=== PATIENT | female | born 1940 | race Caucasian/White ===

== ENCOUNTER → 2023-09-06 09:22 | Outpatient (REF) | payer OTHER, SELFPAY | LOC: HWRCS 09:22 | PROVIDERS: ATTENDING PHYSICIAN Internal Medicine Cardiovascular Disease; FAMILY PHYSICIAN Family Medicine | DX: Z95.2 Presence of prosthetic heart valve (principal) | CPT/HCPCS: 93306 ==

== ENCOUNTER → 2023-11-06 17:08 | Outpatient (REF) | payer OTHER, SELFPAY | LOC: RAD 17:08 | PROVIDERS: ATTENDING PHYSICIAN Physician Assistant | DX: R60.0 Localized edema (principal); R06.02 Shortness of breath; I25.10 Atherosclerotic heart disease of native coronary artery without angina pectoris; E11.59 Type 2 diabetes mellitus with other circulatory complications | CPT/HCPCS: 71046 ==

== ENCOUNTER → 2024-08-08 12:29 | Outpatient (REF) | payer OTHER, SELFPAY | LOC: RSP 12:29 | PROVIDERS: ATTENDING PHYSICIAN Family Medicine | DX: R06.02 Shortness of breath (principal) | CPT/HCPCS: 94727; 94729; 88738; 94060 ==

== ENCOUNTER 2024-08-13 08:12 | Emergency (ER) | payer OTHER, SELFPAY ==
[2024-08-13] VITALS (14 sets, daily range): BP systolic 105–153; BP diastolic 44–94; O2SAT 95–98; BMI 30.8
--- NOTE | 2024-08-13 08:19 | ED.MUSCINJ ---
HPI-Injury
General
Chief Complaint: Fall
Source: patient and ambulance crew
Exam Limitations: none
Time Seen by Provider: 08/13/24 08:17
Nursing documentation reviewed up to this point in time: agreed with
History of Present Illness-Injury
Initial Injury comments:
83 yo female w h/o CAD, HTN, HLD, NIDDM, L hip replacement 2013, Tess, Pacemaker, chronic limited ROM left shoulder, presents after fall. She states in her bedroom a few hours ago, reached for her walker, missed it and fell onto carpeted floor. EMS
reports she fell around 5 a.m. (3 hours ago), lay on floor for a while then pushed her emergency button. She waited so long because reportedly, forgot she was wearing the call button. EMS reports they found her prone on the floor.
Pt denies hitting head, denies headache, neck or any new back pain. Points to left clavicle area and left hip to indicate areas of pain.
She denies feeling dizzy or lightheaded prior to fall.
Takes Clopidogrel and ASA.
She was able to get up with help and ambulate with her walker for EMS.
Past History
Past History
ED Past Medical History: HTN, Hypercholesterolemia, NIDDM, Valvular disease and Other (Back pain)
ED Past Surgical History: Cholecystectomy and Orthopedic
Social History
Tobacco: Non-smoker
Alcohol: None
Drug: None
Personal:
Living: alone
Employment: Retired
Family History
Family History: Other (Noncontributory)
Review of Systems
Review of Systems
Allergies reviewed?: Yes
All Other Systems: ROS reviewed and negative except as documented in HPI and ROS
Constitutional: Denies fever
Respiratory: Denies trouble breathing
Cardiac: Denies chest pain, palpitations or syncope
ABD/GI: Denies abdominal pain, nausea, vomiting, diarrhea or anorexia
: Denies dysuria, frequency, difficulty voiding or urgency
Musculoskeletal: Reports back pain (chronic, nothing new) and other (pain left shoulder area, left hip and left lower leg); Denies edema or neck pain
Skin: Reports other (reddened areas both knees, bruise left ingarm)
Neurological: Denies dizzy, headache, weakness or numbness
Phy Exam
Physical Exam
Physical Exam:
GENERAL: No acute distress. A&Ox3.
CONSTITUTIONAL: Afebrile.
EYES: clear, conjunctivae normal
ENMT: dry mucus membranes, Pharynx nl
RESPIRATORY: Regular respirations, nonlabored, lungs clear.
CARDIOVASCULAR: Regular rate and rhythm, no murmurs, no rubs.
GI: Soft, nontender, normal BS
MUSCULOSKELETAL: Moves with ease. Well perfused. No edema. Mild tenderness to palpation about the left shoulder, local ecchymosis anterior to axilla, chronic limited ROM. Mild tenderness to palpation left hip.No discoloration or swelling here, hip
discomfort with attempt to bend her knee. Left mid ingram with local swelling and ecchymosis, tender. Distal N/V intact.
SKIN: Warm, dry, pink, anterior knees with local areas of redness
PSYCH: Normal mood and affect. Well kept, interactive and appropriate
NEUROLOGIC: Awake, alert and oriented. No focal neurological deficits.Speech clear, CN 2-12 intact.
Injury Course
Orders/Labs/Results
Orders:
Orders
08/13/24 08:18
Electrocardiogram (*1) Urgent
Reason for Study: Other
Other Reason for Exam: Fall
EKG- Treatment ONCE
Hip, Left 2-3 Views [CR Hip - LT w/wo Pel 2-3 Vw*] Urgent
Comment:
Reason For Exam: fall, pain
Include a pelvis x-ray?: Yes
Shoulder, Left, Trauma CR [CR Shoulder, Trauma - Left] Urgent
Comment:
Reason For Exam: fall, pain
Tib/Fib, Left 2 View [CR Leg Tibia/fibula Left 2 Vw] Urgent
Comment:
Reason For Exam: fall, pain
08/13/24 08:22
CPK Isoenzyme Urgent
Complete Blood Count/With Diff Urgent
Comprehensive Metabolic Panel Urgent
08/13/24 08:26
0.9% Sodium Chloride 500 ml [Nss] 500 ml IV BOLUS
08/13/24 11:47
Case Management Consult ONCE
Case Management Consult: Discharge Planning
Comment: pt from [facility] frequent falls family hoping for some additional resources
08/13/24 11:58
Physical Therapy Consult [Pt Eval And Treat] Urgent
Activity Level: Ambulate
08/13/24 12:55
Case Management Consult ONCE
Case Management Consult: Discharge Planning
Comment: Patient is here for checkup after fall. Initially her daughter requested case management evaluation
which was done. she lives alone, uses a walker, had physical therapy evaluate and they deem her
unsafe to go home.
08/13/24 13:01
OT Consult [Ot Eval And Treat] Urgent
Treatment: for placement
08/13/24 13:06
Occupational Therapy Consult [Ot Eval And Treat] Urgent
08/13/24 13:17
Urinalysis Reflex To Culture Urgent
Date Specimen was Collected: 08/13/24
Time Specimen was Collected: 13:02
Urine Microscopic Reflex Cult Urgent
Urine Culture Urgent
RENATO Source: U
Specimen Description:
Date Specimen was Collected: 08/13/24
Time Specimen was Collected: 13:02
Abnormal Lab Results
08/13/24 08/13/24
08:22 13:17
Abs Immat Gran (auto) 0.1 H 10^3/uL
(0-0.05)
Immature Gran % 0.6 H %
(0-0.5)
Neutrophils % 76.7 H %
(42.2-75.2)
Lymphocytes % 15.5 L %
(20.5-51.1)
BUN 36 H mg/dl
(7-17)
Creatinine 1.2 H mg/dL
(0.6-1.0)
Glucose 239 H mg/dl
(70-99)
CK-MB (CK-2) 4.4 H ng/ml
(0.0-3.4)
Ur Occult Blood Reflex 3+ A
(Negative)
Leukocyte Esterase Rfl 3+ A
(Negative)
Urine WBC (Reflex) 50-60 A /HPF
(0-5)
Urine Bacteria (Reflex) Many A
(Negative)
Urine Albumin (Reflex) 2+ A
(Neg - Trace)
08/13/24 08:22
08/13/24 08:22
MDM/Problems Addressed
Differential Diagnosis Includes:
fx vs contusion left shoulder, left hip, left tib/fib
Rhabdomyolysis, dehydration, UTI
MDM/Problems Addressed:
83 yo female w h/o CAD, HTN, HLD, NIDDM, L hip replacement 2013, Tess, Pacemaker, chronic limited ROM left shoulder, presents after fall. She states in her bedroom a few hours ago, reached for her walker, missed it and fell onto carpeted floor. EMS
reports she fell around 5 a.m. (3 hours ago), lay on floor for a while then pushed her emergency button. She waited so long because reportedly, forgot she was wearing the call button. EMS reports they found her prone on the floor.
Pt denies hitting head, denies headache, neck or any new back pain. Points to left clavicle area and left hip to indicate areas of pain.
She denies feeling dizzy or lightheaded prior to fall.
Takes Clopidogrel and ASA.
She was able to get up with help and ambulate with her walker for EMS.
EKG: Sinus with PACs.
10:00 a.m.
CBC unremarkable
CMP: BUN/Creat 36/1.2 IVFs infusing for mild dehydration. Glucose 239, CPL minimally elevated 4.4, otherwise normal
Tib fib xray: No fracture
Left hip xray: No acute abnormality
Left shoulder x-ray: No acute abnormality. Moderate osteoarthritis
11:40 AM:
Daughter requests case management to see if there is some way she can get help for patient at home as she is the only caregiver
RN reports patient needed significant help ambulating to the bathroom, physical therapy consult pending
2:20 p.m.
O/T consult in (for insurance purposes per Case Management).
Anna Marie from in and is awaiting approval for [facility]
4:30 P.M.
Pt accepted to [facility]
Ambulance arrival for transport approx 1900
Chronic conditions affecting care: DM and HTN
*EKG
EKG Intrepretation Date: 08/13/24
Interpretation: abnormal
Comparison EKG: changes noted
Heart Rate: 72
Rate: normal
Rhythm: sinus and PAC's
[place]: left axis deviation
Interval: normal interval
QRS Pattern: wide non-specific
Ischemia: no ischemia
ED Attending Note
-
Portions of this chart may have been created with voice recognition software.� Occasional wrong word or��sound alike� substitutions may have occurred due to the inherent limitations of voice recognition software.
Discharge Plan
Departure
Patient Disposition: Fpc/SNF
Date of Disposition: 08/13/24
Time of Disposition: 16:36
Patient with high blood pressure during this ER visit?: No
Condition: Fair
Discharge Problem:
Fall from slip, trip, or stumble, Contusion of left shoulder, Contusion of left lower leg, Ambulatory dysfunction
Instructions: Contusion (DC), Preventing falls in adults
Prescriptions:
No Action
lisinopril 10 mg Tablet
30 mg PO QPM
hydrochlorothiazide 25 mg Tablet
25 mg PO DAILY
oxycodone 5 mg Tablet
5 mg PO Q4H PRN (Reason: pain)
lisinopril 20 MG tablet
20 mg PO DAILY
metformin 500 MG tablet extended release 24 hr
500 mg PO BID
atorvastatin 40 mg tablet
40 mg PO DAILY Qty: 90 3RF
clopidogrel 75 mg tablet
75 mg PO DAILY Qty: 90 10RF
aspirin 81 mg Tablet,Chewable
81 mg PO DAILY
acetaminophen 325 mg Tablet
650 mg PO Q6HPRN PRN (Reason: PEREYRA, mild pain, or fever >101F) Qty: 0 0RF
Referrals:
Reva Krause MD [Family Provider] - As needed
Interventions
Interventions:
*Risk Screen - Suicide Last Done: 08/13/24 08:15
*General Assessment Last Done: 08/13/24 08:15
*Neglect/Abuse Screening Last Done: 08/13/24 08:15
*ED- Fall Risk Assessment Last Done: 08/13/24 08:15
ED-Musculoskeletal Assessment Last Done: 08/13/24 08:15
ED- Neurological Assessment Last Done: 08/13/24 08:20
ED-Skin Assessment Last Done: 08/13/24 08:15
Discharge Date and Time
Print Language: THAI
[2024-08-13 08:35] LABS: % Basophils 0.5 % (0-2); % Eosinophils 0.4 % (0-6); % Immature Granulocytes 0.6 % (0-0.5); % Lymphocytes 15.5 % (20.5-51.1); % Monocytes 6.3 % (1.7-9.3); % Neutrophils 76.7 % (42.2-75.2); Absolute Immature Granulocytes 0.1 10^3/uL (0-0.05); Absolute Lymphocytes 1.3 10^3/uL (1.2-3.4); Absolute Monocytes 0.5 10^3/uL (0.1-0.6); Absolute Neutrophils 6.5 10^3/uL (1.4-6.5); Hematocrit 37.9 % (37.0-47.0); Hemoglobin 13.1 g/dL (12.0-16.0); Mean Corp Hgb Conc. 34.6 g/dL (33.0-37.0); Mean Corpuscular Volume 86.7 fL (81.0-99.0); Mean Platelet Volume 9.7 fL (7.4-10.4); Nucleated Red Blood Cells % 0 %; Platelet Count 145 10^3/uL (130-400); Red Blood Cell Count 4.37 10^6/uL (4.20-5.40); White Blood Cell Count 8.4 10^3/uL (4.8-10.8)
[2024-08-13 08:46] LABS: ALT (SGPT) 33 U/L (0-35); AST (SGOT) 29 U/L (14-36); Albumin 4.4 g/dl (3.5-5.0); Alkaline Phosphatase 110 U/L (38-126); Blood Urea Nitrogen 36 mg/dl (7-17); Calcium 9.4 mg/dl (8.4-10.2); Carbon Dioxide 26 mmol/L (22-30); Chloride 106 mmol/L (98-107); Estimated Creatinine Clearance 29 ml/min; Glucose 239 mg/dl (70-99); Potassium 4.6 mmol/L (3.5-5.1); Sodium 145 mmol/L (135-145); Total Bilirubin 0.7 mg/dl (0.2-1.3); Total CK 133 U/L (30-135); Total Protein 7.2 g/dl (6.3-8.2); eGFR 44.36
[2024-08-13] MEDS: NSS 500 IV (09:23)
[2024-08-13 09:25] LABS: CKMB 4.4 ng/ml (0.0-3.4)
--- NOTE | 2024-08-13 12:24 | CM ---
Addendum entered by Anna Marie Willard 08/13/24 15:10:
Pt offered bed at [facility] and pt in agreement
Auth obtained through [facility]
Medical necessity completed
[facility] auth#[id number] 7 days NRD 08/19 9P0
[facility] auth# [id number] [address]
Both auths good for SOC until Mon
Discharge Disposition- [facility] via BLS
Phone- [phone] Fax- [phone]
Original Note:
ED CM consult for dc planning
Bedside meeting with pt and dtr
Pt resides alone in an apt in [facility]
Sje is indep with ambulation and personal care with use of a WW
Dtr provided assistance with meals, transport and errands
Dtr visits every MWF
PCP- Reva Krause
CM provided private duty info as well as [place] [facility] info for home and community based services
If VN needs, [facility] is provider preference
Awaiting outcome of PT eval
[2024-08-13 13:34] LABS: Urine Albumin 2+ (Neg - Trace); Urine Bilirubin Negative (Negative); Urine Character Clear (Clear); Urine Color Yellow; Urine Glucose Negative (Negative); Urine Ketone Negative (Negative); Urine Leukocyte 3+ (Negative); Urine Nitrite Negative (Negative); Urine Occult Blood 3+ (Negative); Urine Urobilinogen Negative (Neg - 1+)
[2024-08-13 13:43] LABS: Urine Bacteria Many (Negative); Urine Red Blood Cell 0-2 /HPF (0-2); Urine Squamous Cell 0-2 /LPF (Few); Urine White Cell 50-60 /HPF (0-5)
== END 2024-08-13 18:16 ==
LOC: EMR 08:12
PROVIDERS: Registered Nurse; EMERGENCY PHYSICIAN Student in an Organized Health Care Education/Training Program; FAMILY PHYSICIAN Family Medicine
DX: S40.012A Contusion of left shoulder, initial encounter (principal); S80.12XA Contusion of left lower leg, initial encounter; M25.552 Pain in left hip; W18.39XA Other fall on same level, initial encounter; R26.2 Difficulty in walking, not elsewhere classified; E86.0 Dehydration; I10 Essential (primary) hypertension; E78.00 Pure hypercholesterolemia, unspecified; E11.9 Type 2 diabetes mellitus without complications; I25.10 Atherosclerotic heart disease of native coronary artery without angina pectoris; Z95.0 Presence of cardiac pacemaker; Z90.49 Acquired absence of other specified parts of digestive tract; Z96.642 Presence of left artificial hip joint
CPT/HCPCS: 96360; 99285; 73030; 73502; 73590; 80053; 81003; 81015; 82550; 82553; 85025; 87086; 93005

== ENCOUNTER → 2024-08-14 18:05 | Outpatient (REF) | payer OTHER, SELFPAY ==
[2024-08-15 10:16] LABS: Urine Albumin 1+ (Neg - Trace); Urine Bilirubin Negative (Negative); Urine Character Slightly Cloudy (Clear); Urine Color Yellow; Urine Glucose 4+ (Negative); Urine Ketone Negative (Negative); Urine Leukocyte 3+ (Negative); Urine Nitrite Negative (Negative); Urine Occult Blood 1+ (Negative); Urine Urobilinogen Negative (Neg - 1+)
[2024-08-15 10:27] LABS: Urine Bacteria Many (Negative); Urine White Cell 30-40 /HPF (0-5)
== END ==
LOC: OLABP 18:05
PROVIDERS: ATTENDING PHYSICIAN Family Medicine
DX: M62.59 Muscle wasting and atrophy, not elsewhere classified, multiple sites (principal); N39.0 Urinary tract infection, site not specified; E11.22 Type 2 diabetes mellitus with diabetic chronic kidney disease; N39.41 Urge incontinence; I73.9 Peripheral vascular disease, unspecified; E11.42 Type 2 diabetes mellitus with diabetic polyneuropathy
CPT/HCPCS: 81003; 81015; 87086

== ENCOUNTER → 2024-08-16 11:19 | Outpatient (REF) | payer OTHER, SELFPAY ==
[2024-08-16 11:54] LABS: % Basophils 0.4 % (0-2); % Eosinophils 1.9 % (0-6); % Immature Granulocytes 0.2 % (0-0.5); % Monocytes 7.7 % (1.7-9.3); % Neutrophils 59.8 % (42.2-75.2); Absolute Eosinophils 0.1 10^3/uL (0-0.7); Absolute Lymphocytes 1.5 10^3/uL (1.2-3.4); Absolute Monocytes 0.4 10^3/uL (0.1-0.6); Absolute Neutrophils 2.9 10^3/uL (1.4-6.5); Hematocrit 33.4 % (37.0-47.0); Hemoglobin 11.4 g/dL (12.0-16.0); Mean Corp Hgb Conc. 34.1 g/dL (33.0-37.0); Mean Corpuscular Hgb 29.4 pg (27.0-31.0); Mean Corpuscular Volume 86.1 fL (81.0-99.0); Mean Platelet Volume 10.8 fL (7.4-10.4); Nucleated Red Blood Cells % 0 %; Platelet Count 144 10^3/uL (130-400); Red Blood Cell Count 3.88 10^6/uL (4.20-5.40); Red Cell Dist. Width 14.1 % (11.5-14.5); White Blood Cell Count 4.8 10^3/uL (4.8-10.8)
[2024-08-16 13:02] LABS: ALT (SGPT) 29 U/L (0-35); AST (SGOT) 26 U/L (14-36); Alkaline Phosphatase 149 U/L (38-126); Blood Urea Nitrogen 22 mg/dl (7-17); Carbon Dioxide 25 mmol/L (22-30); Chloride 104 mmol/L (98-107); Glucose 264 mg/dl (70-99); Potassium 4.3 mmol/L (3.5-5.1); Sodium 141 mmol/L (135-145); Total Bilirubin 0.6 mg/dl (0.2-1.3); Total Protein 6.4 g/dl (6.3-8.2); eGFR > 60.00
== END ==
LOC: OLABP 11:19
PROVIDERS: ATTENDING PHYSICIAN Family Medicine
DX: M62.59 Muscle wasting and atrophy, not elsewhere classified, multiple sites (principal); N39.0 Urinary tract infection, site not specified; E11.9 Type 2 diabetes mellitus without complications; E11.51 Type 2 diabetes mellitus with diabetic peripheral angiopathy without gangrene; E11.22 Type 2 diabetes mellitus with diabetic chronic kidney disease; E11.42 Type 2 diabetes mellitus with diabetic polyneuropathy; I25.10 Atherosclerotic heart disease of native coronary artery without angina pectoris
CPT/HCPCS: 36415; 80053; 85025

== ENCOUNTER → 2024-09-19 14:42 | Outpatient (REF) | payer OTHER, SELFPAY | LOC: HWRCS 14:42 | PROVIDERS: ATTENDING PHYSICIAN Internal Medicine Cardiovascular Disease; FAMILY PHYSICIAN Family Medicine | DX: I48.0 Paroxysmal atrial fibrillation (principal) | CPT/HCPCS: 93306 ==

== ENCOUNTER 2025-03-07 09:47 | Day surgery (SDC) | payer OTHER, SELFPAY ==
[2025-03-07 10:45] LABS: Glucose - Point of Care 167 mg/dl (70-99)
[2025-03-07 11:06] VITALS: BMI 26.2
== END 2025-03-07 12:29 | disposition home or self-care (01) ==
LOC: CATH 09:47
PROVIDERS: ATTENDING PHYSICIAN Internal Medicine Cardiovascular Disease; FAMILY PHYSICIAN Family Medicine
DX: I47.19 Other supraventricular tachycardia (principal); I48.0 Paroxysmal atrial fibrillation; Z95.0 Presence of cardiac pacemaker; Z95.2 Presence of prosthetic heart valve; I10 Essential (primary) hypertension; Z95.5 Presence of coronary angioplasty implant and graft; I25.10 Atherosclerotic heart disease of native coronary artery without angina pectoris; E11.9 Type 2 diabetes mellitus without complications; I49.5 Sick sinus syndrome; E78.00 Pure hypercholesterolemia, unspecified
CPT/HCPCS: 82962; 92960; 93005

== ENCOUNTER 2025-03-09 02:49 | Inpatient (IN) | payer OTHER, SELFPAY ==
[2025-03-08 22:32] VITALS: BP 102/55
[2025-03-08 23:00] VITALS: BP 95/68
[2025-03-08 23:08] LABS: Hematocrit 33.2 % (37.0-47.0); Hemoglobin 10.5 g/dL (12.0-16.0); Mean Corp Hgb Conc. 31.6 g/dL (33.0-37.0); Mean Corpuscular Volume 89.5 fL (81.0-99.0); Nucleated Red Blood Cells % 0 %; Platelet Count 158 10^3/uL (130-400); Red Cell Dist. Width 14.5 % (11.5-14.5)
[2025-03-08] MEDS: ZOFRAN 4 MG IV (23:18)
[2025-03-08] MEDS: NSS 1000 IV (23:18)
[2025-03-08 23:20] LABS: ALT (SGPT) 39 U/L (0-35); AST (SGOT) 29 U/L (14-36); Albumin 4.1 g/dl (3.5-5.0); Alkaline Phosphatase 75 U/L (38-126); Blood Urea Nitrogen 46 mg/dl (7-17); Calcium 8.8 mg/dl (8.4-10.2); Carbon Dioxide 25 mmol/L (22-30); Chloride 104 mmol/L (98-107); Glucose 169 mg/dl (70-99); Lipase 53 U/L (23-300); Potassium 4.3 mmol/L (3.5-5.1); Sodium 137 mmol/L (135-145); Total Protein 7.0 g/dl (6.3-8.2); eGFR 20.19
--- NOTE | 2025-03-08 23:56 | ED.GENMED ---
History of Present Illness
<Lisa Lancaster MD, Resident - Last Filed: 03/09/25 06:51>
General
Chief Complaint: Fall
Source: patient and family
Time Seen by Provider: 03/08/25 22:58
History of Present Illness
History of Present Illness:
84-year-old female past medical history of paroxysmal A-fib with recent cardioversion yesterday back to sinus rhythm on Eliquis, vascular disease, pacemaker presents to the ER after a fall. Her walker rolled too far out in front of her when she
fell forward onto carpeted floor. She used her altert necklace to call EMS and came to the ER for further evaluation. She denies hitting her head, any loss of consciousness, neck pain or headache. She denies any dizziness, lightheadedness,
feelings like she would pass out prior to falling. She has noted some nausea and vomiting today, but no abdominal pain or diarrhea. She had some nausea and vomiting last week as well according to daughter. They went to their PCP to evaluate and
she was found to be tachycardic in a.fib which is why the cardioversion was scheduled. She also complains of left hip pain. She has chronic left hip pain and current yeast infection and bilateral inguinal and left stomach folds. She denies any
fevers, chills. Daughter states she often has falls when she gets a UTI. She denies any dysuria, hematuria, increased frequency or urgency.
Past History
<Lisa Lancaster MD, Resident - Last Filed: 03/09/25 06:51>
Past History
ED Past Medical History: HTN, Hypercholesterolemia, NIDDM, Valvular disease, Other (spinal stenosis) and Other (paroxysmal a.fib)
ED Past Surgical History: Cholecystectomy and Orthopedic
Social History
Tobacco: Non-smoker
Alcohol: None
Drug: None
Personal:
Living: alone
Employment: Retired
Family History
Family History: Other (Noncontributory)
Review of Systems
<Lisa Lancaster MD, Resident - Last Filed: 03/09/25 06:51>
Review of Systems
Allergies reviewed?: Yes
Constitutional: Reports no symptoms
EENT: Reports no symptoms
Respiratory: Reports no symptoms
Cardiac: Reports no symptoms
ABD/GI: Reports nausea and vomiting
: Reports no symptoms
Musculoskeletal: Reports no symptoms
Phy Exam
<Lisa Lancaster MD, Resident - Last Filed: 03/09/25 06:51>
Physical Exam
Physical Exam:
General: non-toxic, sitting up in bed, conversant
Head: atraumatic, no felt swelling or lumps
NecK: No cervical midline tenderness, full ROM
Eyes: PERRLA
ENT: no raccoon eyes, jordan signs, hemotympanum, fluid in the nose, erythema noted on chin, dry mucous membranes
Cardiac: Regular S1, S2,no murmurs
Respiratory: Clear breath sounds bilaterally
Abdomen: Soft, non-tender, non-distended, normal bowel sounds, beefy red rash in bilateral inguinal folds and left sided stomach folds.
Neurological: Slight left sided facial droop, however NIH 0 with normal symmetrical facial movements, CN II-XII intact, proprioception intact
Back: No midline tenderness
Hips: Bilateral hips full ROM, equal leg length, tenderness with palpation of left iliac crest.
Extremities: No peripheral edema, no tenderness with palpation to bilateral knees or tibia.
Course
<Lisa Lancaster MD, Resident - Last Filed: 03/09/25 06:51>
Orders/Labs/Results
Orders:
Orders
03/08/25 22:41
Electrocardiogram (*1) Urgent
Reason for Study: Abdominal Pain
EKG- Treatment ONCE
IV Insert/Care/Rem.- Treatment PRN
Straight cath- Treatment ONCE
03/08/25 22:53
Complete Blood Count/With Diff Urgent
Comprehensive Metabolic Panel Urgent
Creatine Phosphokinase Urgent
Comment: ADD ON
Lipase Urgent
Urinalysis Reflex To Culture Urgent
Date Specimen was Collected: 03/08/25
Time Specimen was Collected: 22:41
Urine Microscopic Reflex Cult Urgent
Urine Culture Urgent
RENATO Source: U
Specimen Description:
Date Specimen was Collected: 03/08/25
Time Specimen was Collected: 22:41
03/08/25 23:08
0.9% Sodium Chloride 1000 ml [Nss] 1,000 ml IV BOLUS
Ondansetron Injectable [Zofran] 4 mg IV NOW STA
03/08/25 23:44
Add On- LAB Urgent
Tests Added?: CK
03/09/25 00:01
CT Abd/pel Without Iv Or Oral Urgent
Reason For Exam: Nausea, vomiting, fall
CT Head W/o Iv Contrast Urgent
Reason For Exam: Fall, on eliquis
CR Hip - LT w/wo Pel 2-3 Vw* Urgent
Reason For Exam: fall, left hip pain
Include a pelvis x-ray?: Yes
03/09/25 00:16
Clotrimazole [Lotrimin 1% Cream] See Dose Instructions TOPICAL NOW STA
03/09/25 02:36
Cefepime HCl [Maxipime] 2,000 mg IV NOW STA
03/09/25 02:38
Admit/Transfer Patient As Directed
Co-Sign Provider:
Level of Care: Inpatient admission
Assign to:: Telemetry
Physician / Group: Hugo
Diagnosis: UTI, fall
Reason for Telemetry: Medication for Arrhythmia
Date to Stop Telemetry: 03/11/25
Time to Stop Telemetry: 11:00
Reason for Hospitalization: UTI, fall
Expected length of stay greater than two midnights?: Yes
ELOS- Estimated Length of Stay in days: 2
I certify the patient meets the requirements for IP care: Yes
PRN Pain Medication Management As Directed
May give lesser potent ordered pain med per pt: Yes
preference::
Protocol:: Medication orders for pain may be administered in a
manner that supports deferring to patient preference
when the pt is:
- Requesting an ordered lesser potent pain medication.
Least to most potent pain medications are defined
as: acetaminophen < NSAID < tramadol < opioids
(morphine, oxycodone, hydromorphone).
- Requesting a lesser dose of the same medication IF
ORDERED.
- Requesting a less intrusive route of administration
if both routes are prescribed by the provider (PO <
IV).
03/09/25 02:39
Code Status As Directed
Resuscitation Status: Do not resuscitate
Reached after discussion with pt or family/Healthcare POA: Yes
DNR Bracelet Application ONCE
03/09/25 02:40
Sterile Water [Sterile Water For Injection] 10 ml IV NOW STA
03/09/25 04:53
0.9% Sodium Chloride 1000 ml [Nss] 1,000 ml IV 100 mls/hr
Acetaminophen [Tylenol] 650 mg PO Q4HPRN PRN
Bisacodyl [Dulcolax] 10 mg RECTAL [id number] PRN
Dextrose 50%-Water [Dextrose 50% Syringe] 12.5 grams IV [id number] PRN
Docusate W/Senna [Senokot-S] 1 tablet PO BIDPRN PRN
Glucagon [GlucaGen] 1 mg IM PRN PRN
Ondansetron Injectable [Zofran] 4 mg IV Q6HPRN PRN
Oxycodone [Roxicodone] 5 mg PO Q4HPRN PRN
Polyethylene Glycol Powder [Miralax] 17 grams PO DAILYPRN PRN
03/09/25 04:53
VTE Contraindication Routine
VTE Mechanical Device Contraindication: Medical Contraindication
Pharmocologic Contraindication: Medical Contraindication
Activity As Directed
Activity Level: With Assistance
Bedside Glucose Monitoring As Directed
Frequency: AC&HS
Additional Instructions:: Change to q6h if pt on TPN, tube feeding or not eating
Intake/ Output As Directed
Frequency: Per unit guidelines
Vital Signs As Directed
Frequency: Per unit guidelines
Pulse Ox/spot Check [RESP] Routine
Quantity: 1
Pt Eval And Treat Routine
Activity Level: With Assistance
03/09/25 Breakfast
1800 calorie (15 carb) Diabetic
03/09/25 06:35
Basic Metabolic Panel IN AM
Complete Blood Count/No Diff IN AM
03/09/25 07:30
Insulin Aspart Corrective Low [Novolog Flexpen-Low Resistance] See Protocol SC AC
03/09/25 08:00
Amiodarone [Pacerone] 200 mg PO BID
Apixaban [Eliquis] 5 mg PO BID
Nystatin Ointment [Mycostatin Ointment] See Dose Instructions TOPICAL BID
Rosuvastatin Calcium [Crestor] 40 mg PO DAILY
03/09/25 15:00
Cefepime HCl [Maxipime] 1,000 mg IV Q12H
03/11/25 11:00
DC Protocol for Telemetry ONCE
Abnormal Lab Results
03/08/25
22:53
RBC 3.71 L 10^6/uL
(4.20-5.40)
Hgb 10.5 L g/dL
(12.0-16.0)
Hct 33.2 L %
(37.0-47.0)
MCHC 31.6 L g/dL
(33.0-37.0)
MPV 10.7 H fL
(7.4-10.4)
Lymphocytes % 19.2 L %
(20.5-51.1)
BUN 46 H mg/dl
(7-17)
Creatinine 2.3 H mg/dL
(0.6-1.0)
Glucose 169 H mg/dl
(70-99)
ALT 39 H U/L
(0-35)
Ur Occult Blood Reflex 2+ A
(Negative)
Urine Nitrite (Reflex) Positive A
(Negative)
Leukocyte Esterase Rfl 2+ A
(Negative)
Urine WBC (Reflex) 50-60 A /HPF
(0-5)
Urine Bacteria (Reflex) Many A
(Negative)
Urine Albumin (Reflex) 2+ A
(Neg - Trace)
03/08/25 22:53
03/08/25 22:53
Vital Signs
Initial and Last Documented VS:
Initial Vital Signs
Temp Pulse Resp BP Pulse Ox
98.7 F 91 20 102/55 94
03/08/25 22:32 03/08/25 22:32 03/08/25 22:32 03/08/25 22:32 03/08/25 22:32
Last Documented Vital Signs
Temp Pulse Resp BP Pulse Ox
98.7 F 79 17 88/48 94
03/08/25 22:32 03/09/25 05:00 03/09/25 05:00 03/09/25 05:00 03/09/25 05:00
<Mer Archibald, DO - Last Filed: 03/09/25 01:25>
Orders/Labs/Results
Orders:
Orders
03/08/25 22:41
Electrocardiogram (*1) Urgent
Reason for Study: Abdominal Pain
EKG- Treatment ONCE
IV Insert/Care/Rem.- Treatment PRN
Straight cath- Treatment ONCE
03/08/25 22:53
Complete Blood Count/With Diff Urgent
Comprehensive Metabolic Panel Urgent
Creatine Phosphokinase Urgent
Comment: ADD ON
Lipase Urgent
Urinalysis Reflex To Culture Urgent
Date Specimen was Collected: 03/08/25
Time Specimen was Collected: 22:41
Urine Microscopic Reflex Cult Urgent
Urine Culture Urgent
RENATO Source: U
Specimen Description:
Date Specimen was Collected: 03/08/25
Time Specimen was Collected: 22:41
03/08/25 23:08
0.9% Sodium Chloride 1000 ml [Nss] 1,000 ml IV BOLUS
Ondansetron Injectable [Zofran] 4 mg IV NOW STA
03/08/25 23:44
Add On- LAB Urgent
Tests Added?: CK
03/09/25 00:01
CT Abd/pel Without Iv Or Oral Urgent
Reason For Exam: Nausea, vomiting, fall
CT Head W/o Iv Contrast Urgent
Reason For Exam: Fall, on eliquis
CR Hip - LT w/wo Pel 2-3 Vw* Urgent
Reason For Exam: fall, left hip pain
Include a pelvis x-ray?: Yes
03/09/25 00:16
Clotrimazole [Lotrimin 1% Cream] See Dose Instructions TOPICAL NOW STA
03/09/25 02:36
Cefepime HCl [Maxipime] 2,000 mg IV NOW STA
03/09/25 02:38
Admit/Transfer Patient As Directed
Co-Sign Provider:
Level of Care: Inpatient admission
Assign to:: Telemetry
Physician / Group: Hugo
Diagnosis: UTI, fall
Reason for Telemetry: Medication for Arrhythmia
Date to Stop Telemetry: 03/11/25
Time to Stop Telemetry: 11:00
Reason for Hospitalization: UTI, fall
Expected length of stay greater than two midnights?: Yes
ELOS- Estimated Length of Stay in days: 2
I certify the patient meets the requirements for IP care: Yes
PRN Pain Medication Management As Directed
May give lesser potent ordered pain med per pt: Yes
preference::
Protocol:: Medication orders for pain may be administered in a
manner that supports deferring to patient preference
when the pt is:
- Requesting an ordered lesser potent pain medication.
Least to most potent pain medications are defined
as: acetaminophen < NSAID < tramadol < opioids
(morphine, oxycodone, hydromorphone).
- Requesting a lesser dose of the same medication IF
ORDERED.
- Requesting a less intrusive route of administration
if both routes are prescribed by the provider (PO <
IV).
03/09/25 02:39
Code Status As Directed
Resuscitation Status: Do not resuscitate
Reached after discussion with pt or family/Healthcare POA: Yes
DNR Bracelet Application ONCE
03/09/25 02:40
Sterile Water [Sterile Water For Injection] 10 ml IV NOW STA
03/09/25 04:53
0.9% Sodium Chloride 1000 ml [Nss] 1,000 ml IV 100 mls/hr
Acetaminophen [Tylenol] 650 mg PO Q4HPRN PRN
Bisacodyl [Dulcolax] 10 mg RECTAL [id number] PRN
Dextrose 50%-Water [Dextrose 50% Syringe] 12.5 grams IV [id number] PRN
Docusate W/Senna [Senokot-S] 1 tablet PO BIDPRN PRN
Glucagon [GlucaGen] 1 mg IM PRN PRN
Ondansetron Injectable [Zofran] 4 mg IV Q6HPRN PRN
Oxycodone [Roxicodone] 5 mg PO Q4HPRN PRN
Polyethylene Glycol Powder [Miralax] 17 grams PO DAILYPRN PRN
03/09/25 04:53
VTE Contraindication Routine
VTE Mechanical Device Contraindication: Medical Contraindication
Pharmocologic Contraindication: Medical Contraindication
Activity As Directed
Activity Level: With Assistance
Bedside Glucose Monitoring As Directed
Frequency: AC&HS
Additional Instructions:: Change to q6h if pt on TPN, tube feeding or not eating
Intake/ Output As Directed
Frequency: Per unit guidelines
Vital Signs As Directed
Frequency: Per unit guidelines
Pulse Ox/spot Check [RESP] Routine
Quantity: 1
Pt Eval And Treat Routine
Activity Level: With Assistance
03/09/25 Breakfast
1800 calorie (15 carb) Diabetic
03/09/25 06:35
Basic Metabolic Panel IN AM
Complete Blood Count/No Diff IN AM
03/09/25 07:30
Insulin Aspart Corrective Low [Novolog Flexpen-Low Resistance] See Protocol SC AC
03/09/25 08:00
Amiodarone [Pacerone] 200 mg PO BID
Apixaban [Eliquis] 5 mg PO BID
Nystatin Ointment [Mycostatin Ointment] See Dose Instructions TOPICAL BID
Rosuvastatin Calcium [Crestor] 40 mg PO DAILY
03/09/25 15:00
Cefepime HCl [Maxipime] 1,000 mg IV Q12H
03/11/25 11:00
DC Protocol for Telemetry ONCE
Abnormal Lab Results
03/08/25
22:53
RBC 3.71 L 10^6/uL
(4.20-5.40)
Hgb 10.5 L g/dL
(12.0-16.0)
Hct 33.2 L %
(37.0-47.0)
MCHC 31.6 L g/dL
(33.0-37.0)
MPV 10.7 H fL
(7.4-10.4)
Lymphocytes % 19.2 L %
(20.5-51.1)
BUN 46 H mg/dl
(7-17)
Creatinine 2.3 H mg/dL
(0.6-1.0)
Glucose 169 H mg/dl
(70-99)
ALT 39 H U/L
(0-35)
Ur Occult Blood Reflex 2+ A
(Negative)
Urine Nitrite (Reflex) Positive A
(Negative)
Leukocyte Esterase Rfl 2+ A
(Negative)
Urine WBC (Reflex) 50-60 A /HPF
(0-5)
Urine Bacteria (Reflex) Many A
(Negative)
Urine Albumin (Reflex) 2+ A
(Neg - Trace)
03/08/25 22:53
03/08/25 22:53
Vital Signs
Initial and Last Documented VS:
Initial Vital Signs
Temp Pulse Resp BP Pulse Ox
98.7 F 91 20 102/55 94
03/08/25 22:32 03/08/25 22:32 03/08/25 22:32 03/08/25 22:32 03/08/25 22:32
Last Documented Vital Signs
Temp Pulse Resp BP Pulse Ox
98.7 F 79 17 88/48 94
03/08/25 22:32 03/09/25 05:00 03/09/25 05:00 03/09/25 05:00 03/09/25 05:00
<Lisa Lancaster MD, Resident - Last Filed: 03/09/25 06:51>
MDM/Problems Addressed
Differential Diagnosis Includes:
Fall, intracranial bleed, hip fracture, concussion, AIDA, dehydration, rhabdomyolysis,
MDM/Problems Addressed:
Given age and on eliquis, will do a non-con head CT to evaluate for intracranial bleed however it is unlikely given she denies hitting her head, no loss of consciousness, dizziness, headache, neck pain. No cervical midline tenderness, focal
neurological deficits, altered level consciousness or distracting injury present therefore per [facility] C-spine rule imaging not required. She does have a slight left-sided facial droop however facial movement is symmetric and cranial nerves intact.
Will see what the Non-con CT shows. Otherwise, will get CBC, CMP, creatinine phosphokinase to evaluate for rhabdomyolysis.
Creatinine found to be 2.3. She does have dry mucous membranes and BP soft, will order 1 L fluids and likely admit for evaluation of her AIDA. She did have an episode of nausea and vomiting last week according to the daughter. At that time they
went to her PCP and found she had an elevated heart rate and was in atrial fibrillation. That was when she followed up with cardiology for the cardioversion yesterday. Given the fall and unclear cause of the recurrent nausea and vomiting, we will
get abdomen pelvis CT to evaluate for any acute etiology. Zofran for nausea. Physical exam was unremarkable and she has no diarrhea.
EKG appears she may be back in paroxysmal atrial fibrillation. Difficult to interpret.
Will also get UA as patient's daughter states she has had falls in the past related to UTIs.
01:[address] revealed no acute abnormality. Abdomen/pelvis CT revealed small and large bowel decompressed possibly physiologic versus related to diarrhea and vomiting. Wall thickness is possible related to contracted state versus mild enterocolitis.
No inflammation noted. Will admit patient for observation given AIDA of 2.3 baseline 0.9 and monitoring of nausea and vomiting.
Chronic conditions affecting care: CAD and Arrhythmia
<Lisa Lancaster MD, Resident - Last Filed: 03/09/25 06:51>
*Pulse Oximetry
SaO2: 94
Oxygen Mode of Delivery: Room air
Patient hypoxic: no
*Technology Resource Teacher Interpretation
Rate: normal
Interpretation: abnormal
Rhythm: a-fib
*Critical Care Note
Total Time (30-74mins, 75-104mins- exclusive of procedures): Not Applicable
Data Reviewed
Review of Other/Old Records Reveals: Labs (hg on 08/16/24 11.4) and Radiology Studies (Left knee osteoarthritis noted on tibia/fibula x-ray 08/13/24)
Source: patient and family
ED Attending Note
<Lisa Lancaster MD, Resident - Last Filed: 03/09/25 06:51>
-
Portions of this chart may have been created with voice recognition software.� Occasional wrong word or��sound alike� substitutions may have occurred due to the inherent limitations of voice recognition software.
<Mer Archibald DO - Last Filed: 03/09/25 01:25>
ED Attending Note
Patient seen and examined by attending physician: Yes
I performed a history and physical exam of patient and discussed management with resident, I reviewed resident's note and agree with documented findings and plan of care.: Yes
ED Attending Note:
This is an 84-year-old woman who resides at [facility]. She has history of CAD, hypertension, hyperlipidemia, PAF chronically maintained on Eliquis. History of spinal stenosis with chronic low back pain, chronic
ambulatory dysfunction, utilizes a walker to ambulate.
She presents via EMS after suffering a fall at home. She has had several episodes of vomiting today. Unclear as to onset of nausea and vomiting. She states her walker got away from her and she slowly fell to the floor, denies striking her head
nor losing consciousness. She eventually pressed her medic alert button and admits that she initially forgot that she was wearing her medic alert. It is unclear as to the timing of her fall, unclear as to how long she had been lying on the floor.
Upon arrival to the ED she did vomit approximately 200 cc bilious material.
She denies abdominal pain, denies diarrhea.
No known close contacts with similar symptoms. No recent travel nor recent antibiotic use.
Upon review of records, yesterday, patient underwent outpatient electrical cardioversion of A-fib.
84-year-old woman appears her stated age. Awake and alert, mildly confused, oriented to person and place. Confused as to time of day as well as timing of recent events.
HEENT: Questionable superficial abrasion of the chin with circular erythema extending from chin to anterior neck. No palpable tenderness. Teeth are intact. Oral mucosa is dry.
Neck is supple, nontender. Full range of motion without difficulty nor pain.
Heart is irregularly irregular.
No respiratory distress. Lungs are clear to auscultation.
Abdomen is soft without appreciable tenderness.
Extremities: Mild tenderness left posterior hip with full range of motion with increased pain with internal and external rotation.
Skin: Intertriginous candidal rash beneath left lower quadrant pannus as well as right inguinal region.
Concern for occult head injury and as patient maintained on Eliquis will check CT of the head.
With recent nausea and vomiting, concern for acute dehydration/kidney injury, electrolyte abnormality.
Abdomen is soft and benign, bowel obstruction is unlikely but must consider enterocolitis. Will check CT of the abdomen and pelvis.
Labs thus far significant for acute kidney injury, likely dehydration related. Less likely kidney obstruction/kidney stone. Will check CT as above.
IV fluids have been initiated and patient has been given IV Zofran for nausea/vomiting.
Due to significant acute kidney injury/acute dehydration, patient will require acute hospitalization, continued IV fluids, further monitoring of renal function and GI status.
Discharge Plan
Departure
Patient Disposition: Admit
Date of Disposition: 03/09/25
Time of Disposition: 01:30
Presentation/result/management discussed w/ accepting MD/DO: Hospitalist
Discharge Problem:
AIDA (acute kidney injury), Fall
Interventions
Interventions:
*Risk Screen - Suicide Last Done: 03/08/25 22:32
*General Assessment Last Done: 03/08/25 22:32
*Neglect/Abuse Screening Last Done: 03/08/25 22:32
*ED- Fall Risk Assessment Last Done: 03/08/25 22:32
*ED COVID-19 Vaccine History Last Done: 03/08/25 22:32
*ED Influenza Vaccine History Last Done: 03/08/25 22:32
ED-Musculoskeletal Assessment Last Done: 03/08/25 23:21
ED- Neurological Assessment Last Done: 03/08/25 22:47
ED-Skin Assessment Last Done: 03/08/25 22:47
[2025-03-09] VITALS (33 sets, daily range): BP systolic 83–128; BP diastolic 45–113; PULSE 55; O2SAT 96; BMI 28.0
[2025-03-09 01:40] LABS: Urine Character Clear (Clear)
[2025-03-09 01:48] LABS: Urine Squamous Cell 0-2 /LPF (Few)
[2025-03-09 01:50] LABS: Urine Red Blood Cell 0-2 /HPF (0-2); Urine White Cell 50-60 /HPF (0-5)
--- NOTE | 2025-03-09 02:04 | HPS.HSE ---
Family Physician
-
Family Physician: Carlos A Ortiz
Chief Complaint
-
Fall
History of Present Illness
This is a 84-year-old with past medical history significant for aortic stenosis status post TAVR, proximal atrial fibrillation status post cardioversion, hcq-vwsosis-shfewhpaj diabetes, hyperlipidemia, hypertension, CAD status post LAD stents
presents to the emergency department following a mechanical fall at home.
Patient reports that she is in usual state of health. She has had some weakness in the left lower extremity ever since her hip surgery. She stated that she was walking with a walker when the walker got away from her and she is unable to reach and
get pulled away by falling. She states she has some nausea at the time of the fall. She does not remember exactly how she fell but she denied striking her head. She denied having any lightheadedness or dizziness prior to the fall. She denied
having any palpitations. She denied having any chest pain. She has not been having any shortness of breath recently and she has not been having any recent exertional chest pain. She denies any lower extremity swelling. Patient denies numbness or
tingling.
She reports that she has been having usual oral intake with normal appetite. She has longstanding urinary frequency and some incontinence which she states has changed recently. She has been having nausea or in the emergency department. She did
vomit once when she got to the ED. Thereafter she had a nauseous episode with attempted straight cath. She denies dysuria. She denies any fevers or chills. She denies any cough or wheezing.
Patient just had a elective cardioversion yesterday. She supposed to be on amiodarone but is not clear whether she has started taking this. She said she had nausea after the procedure but otherwise has no other symptoms.
On arrival in the emergency department her blood pressure was noted being around 100 systolic now currently at around 84 systolic with a MAP of 65. She is afebrile with a temp of 98.7, pulse rate of 90 and oxygen saturation of 94% on room air. ECG
shows a paced rhythm. CT head unremarkable. Noncontrast CT a/p 'Small and large bowel decompressed possibly physiologic versus related to diarrhea and vomiting. Wall thickening is possibly related to contracted state versus mild enterocolitis. No
inflammatory change. Small bilateral pleural effusions with probable atelectasis. Mild bronchial wall thickening. Kidneys mildly atrophic bilaterally.'
CBC with a white count 7.2 hemoglobin of 10.5 and glucose 158. Electrolytes are within normal limits. BUN and creatinine has not been elevated eval elevated to creatinine of 2.3 from baseline 0.9. UA via straight cath is markedly positive with
nitrite leukocyte esterase bacteria
Medical History
Past Medical History
Past Medical History: Reports Arrhythmia (Paroxysmal atrial fibrillation status post cardioversion, sick sinus syndrome status post pacemaker placement), CAD (CAD status post stent to proximal LAD 2022), HTN, Hypercholesterolemia, NIDDM and Valvular
Disease (Aortic stenosis status post TAVR)
Past Surgical History: Reports Cholecystectomy and Orthopedic (Left hip replacement, arthrocentesis of left knee joint and right shoulder joint)
Social History
Tobacco: Non-smoker
Alcohol: None
Drug: None
Personal:
Living: Alone (Daughter visits every other day)
Employment: Retired
Family History
Family History: Not pertinent
Allergies / Home Medications
Allergies reflects when Allergies were last updated in [employer].
Home Medications with original date entered in [employer]
Allergy/Medication List:
Allergies
Allergy/AdvReac Type Severity Reaction Status Date / Time
No Known Allergies Allergy Verified 08/26/22 10:00
Home Medications
hydrochlorothiazide 25 mg tablet 25 mg PO DAILY Blood pressure 07/11/22
lisinopril 20 mg tablet 20 mg PO BID Blood pressure 07/11/22
metformin 500 mg tablet,extended release 24 hr 1,000 mg PO BID Diabetes 07/11/22
Held on 09/09/22. Instructions: Resume on 09/10/22.
oxycodone 5 mg tablet 5 mg PO Q4H PRN pain 07/11/22
acetaminophen 500 mg tablet 1,000 mg PO Q6H PRN pain 03/07/25
apixaban 5 mg tablet (Eliquis) 5 mg PO BID 03/07/25
rosuvastatin 40 mg tablet 40 mg PO DAILY 03/07/25
Review of Systems
-
Constitutional: Reports No Symptoms
EENT: Reports No Symptoms
Respiratory: Reports No Symptoms
Cardiac: Reports No Symptoms
Abdomen/GI: Reports Nausea
: Reports No Symptoms
Musculoskeletal: Reports No Symptoms
Skin: Reports No Symptoms
Neurological: Reports No Symptoms
Endocrine: Reports No Symptoms
Hematologic/Lymphatic: Reports No Symptoms
Psych: Reports No Symptoms
Physical Exam
Vital Signs
Vital Signs
Temp Pulse Resp BP Pulse Ox
98.7 F 90 19 100/56 94
03/08/25 22:32 03/09/25 00:00 03/09/25 00:00 03/09/25 00:00 03/09/25 00:00
Physical Exam
General: Well Developed, Well Nourished and No Apparent Distress
HEENT: NormoCephalic, Moist mucous membranes and Atraumatic
Respiratory: Clear
Cardiac: S1/S2 and Regular Rhythm; No Murmur or Rub
GI: Soft, Non Tender, Non Distended and Normal Bowel Sounds; No Organomegaly
Rectal: Deferred by Provider
Genito-urinary: No costovertebral tender
Musculoskeletal: No Clubbing, No Cyanosis and No Edema
Skin: No Rash
Neuro: AO x 3 and Nonfocal/grossly intact
Hematologic/Lymphatic: No Lymphadenopathy
Laboratory Results
-
03/08/25 22:53
03/08/25 22:53
Laboratory Results
Total Bilirubin 0.7 mg/dl (0.2-1.3) 03/08/25 22:53
AST 29 U/L (14-36) 03/08/25 22:53
ALT 39 U/L (0-35) H 03/08/25 22:53
Alkaline Phosphatase 75 U/L (38-126) 03/08/25 22:53
Lipase 53 U/L (23-300) 03/08/25 22:53
Data Reviewed
-
Diagnostic Radiology: Image Personally Visualized and interpreted
CT Scan: Report Reviewed by me
Medical Tests (Nuc Med, Echo, EKG etc): Image Personally Visualized and interpreted
Lab Data: Labs Reviewed by me
Old Records: Reviewed
Impression/Plan
-
IMPRESSION:
84-year-old female with past medical history significant for CAD status post stenting, atrial fibrillation on anticoagulation with history of status post cardioversion yesterday, hypertension, pck-sxlewnq-irbyicwwp diabetes, aortic stenosis status
post TAVR presents to the Emergency Department following a fall in the setting of some nausea. There was no loss of consciousness. She fell she lost control of her walker and then fell to the floor without a head strike. CT of the head was
negative for any acute bleed. In the emergency department she was found to not have any fractures. However she is found to have a UTI. There was no urinary obstruction on the CT scan. She does have AIDA with a creatinine of 2.3 up from a baseline
of 0.9 without any clear explanation at this time as patient has been eating and drinking normally without any evidence of hypovolemia.
PLAN:
Urinary tract infection
- Admit to [facility] for now
- Will start on cefepime based on prior cultures
- Urine culture sent and pending
AIDA -creatinine 2.3 from a baseline of 0.9. BUN up to 46. Nuclear etiology unlikely to be rhabdo, no evidence of hypobulimia although blood pressure is generally soft at this time. CT negative for stone or other. Urinary obstruction
- Monitor bladder scan for now
- Hold lisinopril and hydrochlorothiazide
-Check CPK
- Gentle hydration for now
- Repeat creatinine in a.m., if improving, monitor otherwise consult nephrology
atrial fibrillation -paced rhythm at this time, she was status post cardioversion yesterday
- Continue amiodarone 200 mg p.o. twice daily, patient unsure if taking but prescription in record since Mar 04. Will continue, daughter to bring updated home list in am.
- Continue Eliquis
Hypertension
-Holding HCTZ and lisinopril for now
Diabetes
- Sliding scale insulin
DVT prophylaxis�on apixaban
CODE STATUS�DNR
[2025-03-09] MEDS: LOTRIMIN 1% CREAM 1 APPLIC TOPICAL (02:18)
[2025-03-09] MEDS: MAXIPIME 2000 MG IV (03:08)
[2025-03-09] MEDS: STERILE WATER FOR INJECTION 10 ML IV ×2 (03:09→15:22)
[2025-03-09] MEDS: NSS 500 IV (03:40)
[2025-03-09 07:25] LABS: Blood Urea Nitrogen 43 mg/dl (7-17); Calcium 8.0 mg/dl (8.4-10.2); Carbon Dioxide 26 mmol/L (22-30); Chloride 110 mmol/L (98-107); Glucose 134 mg/dl (70-99); Hematocrit 27.3 % (37.0-47.0); Hemoglobin 8.9 g/dL (12.0-16.0); Mean Corp Hgb Conc. 32.6 g/dL (33.0-37.0); Mean Corpuscular Volume 87.5 fL (81.0-99.0); Platelet Count 120 10^3/uL (130-400); Potassium 4.2 mmol/L (3.5-5.1); Red Cell Dist. Width 14.5 % (11.5-14.5); Sodium 139 mmol/L (135-145); eGFR 25.40
[2025-03-09 07:46] LABS: Glucose - Point of Care 145 mg/dl (70-99)
[2025-03-09] MEDS: NOVOLOG FLEXPEN-LOW RESISTANCE SC ×2 (08:01→11:51)
--- NOTE | 2025-03-09 08:20 | W.PN.HOSP.TC ---
Today's Communication/Plan
-
continue IVF, abx, cultures pending
aida workup
anemia w/u
Assessment / Plan
Assessment / Plan
84F with s/p TAVR, PAF s/p CV 03/08, DM, HLD, HTN, CAD s/p stents, L hip replacement p/w fall, found to be hypotensive, and found to have UTI and AIDA.
Sepsis 2/2 UTI
UTI associated with elevated creatinine
IV fluid
Hypotension improved with IV fluid
Empiric IV cefepime
Follow-up urine culture, blood culture
AIDA
Baseline creatinine 0.9
could be due to sepsis/UTI as above, also noted to have anemia, proteinuria could suggest CKD
CT negative for urinary obstruction
check urine lytes
Hold lisinopril and hydrochlorothiazide and metformin
Repeat creatinine after trial of IVF 2.3-->1.9
If not improved will consult nephrology
Anemia
Baseline 11.4
Currently hemoglobin 8.9
Check anemia panel
Continue Eliquis unless any active bleeding
Thrombocytopenia
Dropped from 158-120 since admission, could be dilutional given IV fluids
Continue to monitor for now
Fall
DDx�due to hypotension, anemia, mechanical given left hip replacement
Check orthostatic VS
PT/OT
AF
paced rhythm at this time, she was status post cardioversion on day prior to admission
Continue amiodarone 200 mg p.o. twice daily, needs med rec
Continue Eliquis
Hypertension
Hypotensive in ED as above
holding HCTZ and lisinopril for now
Diabetes
BG controlled
Hold home metformin
Sliding scale insulin
Repeat A1c
DVT prophylaxis�on apixaban
CODE STATUS�DNR
Anticipated Discharge: 24 - 48 hours
Subjective/Interval History
-
Date of Service: March 09, 2025
Patient denies any nausea or vomiting at this time
Objective Data
-
Labs:
Laboratory Results
03/08/25 03/09/25
22:53 06:35
WBC 7.2 5.0
Hgb 10.5 L 8.9 L
Hct 33.2 L 27.3 L
Plt Count 158 120 L D
Sodium 137 139
Potassium 4.3 4.2
Chloride 104 110 H
Carbon Dioxide 25 26
BUN 46 H 43 H
Creatinine 2.3 H 1.9 H
Glucose 169 H 134 H
Calcium 8.8 8.0 L
Total Bilirubin 0.7
AST 29
ALT 39 H
Alkaline Phosphatase 75
Vital Signs:
Vital Signs
Temp Pulse Resp BP Pulse Ox
98.7 F 66 18 93/48 94
03/08/25 22:32 03/09/25 08:00 03/09/25 08:00 03/09/25 08:00 03/09/25 08:00
I&O
03/08/25 03/09/25 03/10/25
06:59 06:59 06:59
Intake Total 1500 / 1500
Output Total 200 / 200
Balance 1300 / 1300
Review of Systems
-
All other systems: Reviewed and negative
Physical Exam
-
General: No Apparent Distress
HEENT: Moist Mucous Membranes, Anicteric and PERRLA
Respiratory: Clear to Auscultation; Negative Wheezes, Rales or Rhonchi
Cardiac: Regular Rhythm and S1/S2; Negative Murmur, Rub or Gallop
GI: Soft, Nontender, Nondistended and Normal Bowel Sounds
Musculoskeletal: No Edema
Skin: Warm and Dry; Negative Rash, Ulcers or Lesions
Neuro: Awake and AO x 3
Hematologic / Lymphatic: No Lymphadenopathy
Psych: Calm
Data Reviewed
-
Diagnostic Radiology: Report Reviewed by me
CT Scan: Report Reviewed by me
Labs: Labs Reviewed by me and Discussed with Patient
[2025-03-09] MEDS: PACERONE 200 MG PO ×2 (08:24→20:15)
[2025-03-09] MEDS: ELIQUIS 5 MG PO ×2 (08:24→20:15)
[2025-03-09] MEDS: CRESTOR 40 MG PO (08:24)
[2025-03-09] MEDS: MYCOSTATIN OINTMENT TOPICAL (08:27)
[2025-03-09 10:56] LABS: Reticulocyte Count 1.1 % (0.4-2.8)
[2025-03-09 11:23] LABS: Iron 42 ug/dl (37-170); LDH 307 U/L (120-246)
[2025-03-09 11:24] LABS: Total Iron Binding Capacity 243 ug/dl (265-497)
[2025-03-09 11:52] LABS: Glucose - Point of Care 148 mg/dl (70-99)
[2025-03-09 12:22] LABS: Folate > 20.0 ng/ml (2.76-20); Vitamin B12 172 pg/ml (239-931)
[2025-03-09] MEDS: NSS 1000 IV (13:25)
[2025-03-09 14:29] LABS: Glycohemoglobin (HgbA1c) 7.7 % (4.0-5.9)
--- NOTE | 2025-03-09 15:18 | PTCARENOTE ---
Rec'd pt from ER. transferred to bed. Denies pain. NSS started at 100ml/hr as ordered. Daughter at bedside, assisted with admission. Pt saw pt at the bedside. Ambulated pt to the hallway. Purewick removed. Explained to daughter and pt the risk of
UTI with use. Pt and daughter agree she will be able to use bedside commode when needed. Bed alarm placed under patient. Call elkins and TV remote in reach
[2025-03-09] MEDS: MAXIPIME 1000 MG IV (15:21)
[2025-03-09 16:25] LABS: Glucose - Point of Care 167 mg/dl (70-99)
[2025-03-09] MEDS: NOVOLOG FLEXPEN-LOW RESISTANCE 1 UNITS SC (17:11)
[2025-03-09 20:55] LABS: Glucose - Point of Care 167 mg/dl (70-99)
[2025-03-09] MEDS: MYCOSTATIN OINTMENT 1 APPLIC TOPICAL (20:59)
[2025-03-10] MEDS: NSS 1000 IV ×2 (00:47→12:13)
[2025-03-10 03:00] VITALS: BP 115/53
[2025-03-10] MEDS: MAXIPIME 1000 MG IV ×2 (03:22→16:20)
[2025-03-10] MEDS: STERILE WATER FOR INJECTION 10 ML IV ×2 (03:23→16:21)
[2025-03-10 07:31] VITALS: BP 112/56
[2025-03-10 07:58] LABS: Glucose - Point of Care 167 mg/dl (70-99)
[2025-03-10 08:12] LABS: Hematocrit 31.2 % (37.0-47.0); Hemoglobin 9.5 g/dL (12.0-16.0); Mean Corp Hgb Conc. 30.4 g/dL (33.0-37.0); Mean Corpuscular Volume 91.5 fL (81.0-99.0); Nucleated Red Blood Cells % 0 %; Platelet Count 126 10^3/uL (130-400); Red Cell Dist. Width 14.6 % (11.5-14.5)
[2025-03-10] MEDS: NOVOLOG FLEXPEN-LOW RESISTANCE 1 UNITS SC ×2 (08:22→12:17)
[2025-03-10] MEDS: ELIQUIS 5 MG PO ×2 (08:22→20:50)
[2025-03-10] MEDS: PACERONE 200 MG PO ×2 (08:22→20:50)
[2025-03-10] MEDS: CRESTOR 40 MG PO (08:22)
[2025-03-10] MEDS: MYCOSTATIN OINTMENT 1 APPLIC TOPICAL ×2 (08:23→20:52)
[2025-03-10 08:36] LABS: Blood Urea Nitrogen 33 mg/dl (7-17); Calcium 8.0 mg/dl (8.4-10.2); Carbon Dioxide 26 mmol/L (22-30); Chloride 109 mmol/L (98-107); Estimated Creatinine Clearance 24 ml/min; Glucose 131 mg/dl (70-99); Potassium 4.4 mmol/L (3.5-5.1); Sodium 141 mmol/L (135-145); eGFR 33.73
--- NOTE | 2025-03-10 10:04 | W.PN.HOSP.TC ---
Today's Communication/Plan
-
IVF, can likely stop later today
IV Cefepime, follow up final cultures
Start Vitamin B12 repletion
Assessment / Plan
Assessment / Plan
84F with s/p TAVR, PAF s/p CV 11/, DM, HLD, HTN, CAD s/p stents, L hip replacement p/w fall, found to be hypotensive, and found to have UTI and AIDA.
Sepsis 2/2 UTI
-UTI associated with elevated creatinine
-continue fluids
Hypotension improved with IV fluid
Empiric IV cefepime
Follow-up urine culture, blood culture
AIDA
Baseline creatinine 0.9
-improving with IVF
CT negative for urinary obstruction
check urine lytes
Hold lisinopril and hydrochlorothiazide and metformin
-can likely stop IVF later today
Anemia
Baseline 11.4
Currently hemoglobin 8.9
Check anemia panel
Continue Eliquis unless any active bleeding
Thrombocytopenia
Dropped from 158-120 since admission, could be dilutional given IV fluids
Continue to monitor for now
Fall
DDx�due to hypotension, anemia, mechanical given left hip replacement, low vitamin B12
Check orthostatic VS
PT/OT
Vitamin B12 Deficiency
-start repletion
AF
paced rhythm at this time, she was status post cardioversion on day prior to admission
Continue amiodarone 200 mg p.o. twice daily, needs med rec
Continue Eliquis
Hypertension
Hypotensive in ED as above
holding HCTZ and lisinopril for now
Diabetes
BG controlled
Hold home metformin
Sliding scale insulin
Repeat A1c
DVT prophylaxis�on apixaban
CODE STATUS�DNR
Anticipated Discharge: 24 - 48 hours
Subjective/Interval History
-
Date of Service: March 10, 2025
feeling well
no new complaints
getting washed up
no pain
Objective Data
-
Labs:
Laboratory Results
03/10/25
06:45
WBC 4.0 L
Hgb 9.5 L
Hct 31.2 L
Plt Count 126 L
Sodium 141
Potassium 4.4
Chloride 109 H
Carbon Dioxide 26
BUN 33 H
Creatinine 1.5 H
Glucose 131 H
Calcium 8.0 L
Vital Signs:
Vital Signs
Temp Pulse Resp BP Pulse Ox
98.1 F 70 18 112/56 93
03/10/25 07:31 03/10/25 08:22 03/10/25 07:31 03/10/25 08:22 03/10/25 07:31
I&O
03/09/25 03/10/25 03/11/25
06:59 06:59 06:59
Intake Total 1500 / 1500 1277 / 1277
Output Total 200 / 200
Balance 1300 / 1300 1277 / 1277
Review of Systems
-
History Source: Patient
All other systems: Reviewed and negative
Physical Exam
-
General: No Apparent Distress
HEENT: Moist Mucous Membranes, Anicteric and PERRLA
Respiratory: Clear to Auscultation; Negative Wheezes, Rales or Rhonchi
Cardiac: Regular Rhythm and S1/S2; Negative Murmur, Rub or Gallop
GI: Soft, Nontender, Nondistended and Normal Bowel Sounds
Musculoskeletal: No Edema
Skin: Warm and Dry; Negative Rash, Ulcers or Lesions
Neuro: Awake and AO x 3
Hematologic / Lymphatic: No Lymphadenopathy
Psych: Calm
Data Reviewed
-
Diagnostic Radiology: Report Reviewed by me
Labs: Labs Reviewed by me
[2025-03-10 11:00] VITALS: BP 109/54
[2025-03-10 11:39] LABS: Glucose - Point of Care 199 mg/dl (70-99)
[2025-03-10] MEDS: CYANOCOBALAMIN 1000 MCG IM (12:15)
--- NOTE | 2025-03-10 12:16 | CM ---
Addendum entered by Bessie Reese 03/10/25 14:15:
Advance Directive provided to patient.
Original Note:
CM reviewed chart, patient seen bedside, initial assessment completed.
Patient is a 84-year-old with past medical history significant for aortic stenosis status post TAVR, proximal atrial fibrillation status post cardioversion, ldt-pohuvsp-ttdllekai diabetes, hyperlipidemia, hypertension, CAD status post LAD stents
presents to the emergency department following a mechanical fall at home.
Patient resides independently in an apartment ([facility]), elevator access.
Patient reports having a walker and wheelchair, shower seat, grab bars, in the home.
Patient reports VN in past, denies SNF.
CM discussed therapy recommendations of SNF- pt declining, would be agreeable to d/c home with services.
CM offered to call family, pt declining.
PCP Carlos A Ortiz, [facility] [place], pt unsure if she has prescription coverage.
BOOKER form verbally reviewed, provided with copy, placed in chart.
CM will continue to follow for all d/c planning needs.
Plan; pt declining SNF, open to VN upon d/c.
[2025-03-10 15:00] VITALS: BP 102/51
[2025-03-10 16:58] LABS: Glucose - Point of Care 241 mg/dl (70-99)
[2025-03-10] MEDS: NOVOLOG FLEXPEN-LOW RESISTANCE 2 UNITS SC (17:02)
[2025-03-10 19:33] VITALS: BP 113/61
[2025-03-10 22:02] LABS: Glucose - Point of Care 221 mg/dl (70-99)
[2025-03-10] MEDS: NSS IV (22:13)
[2025-03-10 23:18] VITALS: BP 133/69
[2025-03-11] MEDS: STERILE WATER FOR INJECTION 10 ML IV (03:00)
[2025-03-11] MEDS: MAXIPIME 1000 MG IV (03:00)
[2025-03-11 05:05] VITALS: BP 138/68
--- NOTE | 2025-03-11 06:31 | W.DCSUMMARY ---
Discharge Summary
Discharge Data
Date of Admission: 03/09/25
Date of Discharge: 03/11/25
-
Pending Results: No
Hospital Course
Discharging Physician : Dr. Devi Duff
Disposition : Home with Home Health
Primary care physician : Dr. Carlos A Ortiz
Principal Discharge diagnosis : Urinary Tract Infection, Acute Kidney Injury, Vitamin B12 deficiency
Hospital Course :
Ms. Bette Rose is a 84 yo woman wiht hx s/p TAVR, paroxysmal afib s/p recent cardioversion and started on amiodarone, NIDDM, HLD, HTN CAD s/p PCI presents to the ER post fall when she tripped using her walker. She felt nauseated and vomited
x 1 in the ER.
Triage vitals significant for SBP 100 then dropped to 80's, responsive to IVF administration. She was afebrile, SpO2 94% RA. ECG with paced rhythm. Labs with WBC 7.2, Hg 10.5, Glucose 158. Cr 2.3, baseline 0.9. UA with inflammation. CT head
unremarkable. Non con CT without acute abnormality.
Patient was admitted to medicine for treatment of UTI and AIDA.
Patient was treated with IV Cefepime. Final culture results returned positive for garza-sensitive E. Coli. Antibiotics transitioned to Keflex and she will complete a 7 day course.
Blood pressure remained stable with fluid administration and holding her [employer] Lisinopril and HCTZ. Her creatinine downtrended to 1.3. While off of Lisinopril and HCTZ, patient's BP remained within normal limits. Therefore, I am holding these
medications at discharge. She is asked to monitor her blood pressures and bring results to her PCP. A BMP will be repeated in 6 days to monitor renal function.
Given reduced GFR, I have decreased patient's metformin to 500mg twice a day. She will follow up with PCP to determine if prior dosing of 1G BID should be resumed.
Patient worked with physical therapy and SNF recommended but she and daughter preferred that she go home. ordered.
Time spent on discharge was 35 minutes.
Important imaging findings :
CT A/P 03/09/25
IMPRESSION:
1. No significant acute abnormality identified in the abdomen or pelvis, within the limits of unenhanced CT, as described above.
2. Small right and trace left pleural effusions.
HEAD CT 03/09/25
IMPRESSION:
1. No significant acute abnormality identified in the abdomen or pelvis, within the limits of unenhanced CT, as described above.
2. Small right and trace left pleural effusions.
Hip X-Ray 03/09/25
IMPRESSION:
Intact total left hip arthroplasty. No acute fractures or dislocation. Mild to moderate degenerative changes of the pubis symphysis, left hip, bilateral sacroiliac joints and partially visualized lower lumbar spine. Soft tissues are grossly
unremarkable.
Procedure findings :
Discharge Plan
-
Patient Disposition: Home with Home Care
Discharge Diagnosis/Procedures: urinary tract infection, acute kidney injury, Vitamin B12 deficiency
Condition: Good
Diet: Regular
Activity: As tolerated
Driving Restrictions: As prior to admission
Bathing Restrictions: None
Blood Work: BMP on Saturday 03/17
Other Services: VN, PT and OT
Referrals:
Carlos A Ortiz MD [Family Provider, [facility]] - in less than 1 week
Additional Discharge Medication Instructions: You are prescribed 4 more days of antibiotics (Keflex 500mg twice a day).
Start taking Vitamin B12 repletion daily.
STOP LISINOPRIL
STOP HCTZ
Measure your blood pressure in the mornings and evenings at home. Record results and bring to your PCP who will direct you if one of these medications should be resumed.
You can resume 1/2 dose Metformin (500mg) twice a day starting tomorrow (you are given a lower dosing secondary to your kidney function). Your labs will be repeated next week. Follow up with Dr. Ortiz when 1G dosing can be resumed.
*You did not require any Oxycodone in the hospital. I recommend you only take this medication if needed, and take a lower dose (5mg not 10mg).
Prescriptions:
New
nystatin 100,000 unit/gram Ointment
1 applic topical BID Qty: 15 0RF
cephalexin 500 mg Capsule
500 mg PO BID Qty: 8 0RF
cyanocobalamin (vitamin B-12) 1,000 mcg capsule
1,000 mcg PO DAILY Qty: 30 0RF
metformin 500 mg tablet
500 mg PO BID Qty: 28 0RF
Continued
rosuvastatin 40 mg Tablet
40 mg PO DAILY
Eliquis 5 mg Tablet
5 mg PO BID
amiodarone 200 mg tablet
200 mg PO BID
Patient Comments:
as of 03/09/25 has not started
Changed
oxycodone 5 mg Tablet
5 mg PO BID PRN (Reason: severe pain) Qty: 0 0RF
Discontinued
hydrochlorothiazide 25 mg Tablet
25 mg PO DAILY
lisinopril 20 MG tablet
20 mg PO BID
metformin 500 mg Tablet Extended Release 24 Hr
1,000 mg PO BID
Discharge Orders:
Discharge Patient (As Directed); Ordered 03/11/25
Ordered By: Devi Duff
Discharge Date and Time
Print Language: TURKISH
[2025-03-11 07:49] LABS: Glucose - Point of Care 155 mg/dl (70-99)
[2025-03-11] MEDS: CRESTOR 40 MG PO (07:49)
[2025-03-11] MEDS: NOVOLOG FLEXPEN-LOW RESISTANCE 1 UNITS SC (07:50)
[2025-03-11] MEDS: CYANOCOBALAMIN 1000 MCG IM (07:50)
[2025-03-11] MEDS: ELIQUIS 5 MG PO (07:50)
[2025-03-11] MEDS: MYCOSTATIN OINTMENT 1 APPLIC TOPICAL (07:56)
[2025-03-11 08:32] VITALS: BP 115/52
[2025-03-11] MEDS: PACERONE 200 MG PO (08:58)
[2025-03-11 09:20] LABS: Blood Urea Nitrogen 27 mg/dl (7-17); Calcium 8.4 mg/dl (8.4-10.2); Carbon Dioxide 23 mmol/L (22-30); Chloride 110 mmol/L (98-107); Estimated Creatinine Clearance 27 ml/min; Glucose 163 mg/dl (70-99); Potassium 3.9 mmol/L (3.5-5.1); Sodium 138 mmol/L (135-145); eGFR 40.05
--- NOTE | 2025-03-11 10:43 | W.PN.HOSP.TC ---
Addendum entered and electronically signed by Devi Duff MD 03/20/25 17:14:
Sepsis due to UTI with organ dysfunction of AIDA
-see plan below
Original Note:
Today's Communication/Plan
-
discharge home today
Assessment / Plan
Assessment / Plan
84F with s/p TAVR, PAF s/p CV 03/08, DM, HLD, HTN, CAD s/p stents, L hip replacement p/w fall, found to be hypotensive, and found to have UTI and AIDA.
Sepsis 2/2 UTI
-UTI associated with elevated creatinine
-Hypotension improved with IV fluid
- culture returned positive for garza-sensitive E. Coli - transition to Keflex BID x 4 more days
AIDA
Baseline creatinine 0.9
-improvement with IVF
CT negative for urinary obstruction
suspect 2/2 hypotension in setting of infection and BP meds
-continue to hold Lisinopril and HCTZ - off of these medications, BP has been WNL
Anemia
Baseline 11.4
Currently hemoglobin 8.9
Check anemia panel
Continue Eliquis unless any active bleeding
-Hg stable
Thrombocytopenia
-stable
Fall
DDx�due to hypotension, anemia, mechanical given left hip replacement, low vitamin B12
Check orthostatic VS
PT/OT
Vitamin B12 Deficiency
-start repletion
AF
paced rhythm at this time, she was status post cardioversion on day prior to admission
Continue amiodarone 200 mg p.o. twice daily, needs med rec
Continue Eliquis
Hypertension
Hypotensive in ED as above
holding HCTZ and lisinopril for now
Diabetes
BG controlled
Hold home metformin -- resume at lower dosing tomorrow
Sliding scale insulin
Repeat A1c
DVT prophylaxis�on apixaban
CODE STATUS�DNR
Anticipated Discharge: Today
Subjective/Interval History
-
Date of Service: March 11, 2025
she is seen sitting up in chair
feels well and ready to go home today
Objective Data
-
Labs:
Laboratory Results
03/11/25
08:14
Sodium 138
Potassium 3.9
Chloride 110 H
Carbon Dioxide 23
BUN 27 H
Creatinine 1.3 H
Glucose 163 H
Calcium 8.4
Vital Signs:
Vital Signs
Temp Pulse Resp BP Pulse Ox
98.3 F 62 20 115/52 96
03/11/25 08:32 03/11/25 08:32 03/11/25 08:32 03/11/25 08:32 03/11/25 08:32
I&O
03/10/25 03/11/25 03/12/25
06:59 06:59 06:59
Intake Total 1277 / 1277 790 / 790
Balance 1277 / 1277 790 / 790
Review of Systems
-
History Source: Patient
All other systems: Reviewed and negative
Physical Exam
-
General: No Apparent Distress
HEENT: Moist Mucous Membranes, Anicteric and PERRLA
Respiratory: Clear to Auscultation; Negative Wheezes, Rales or Rhonchi
Cardiac: Regular Rhythm and S1/S2; Negative Murmur, Rub or Gallop
GI: Soft, Nontender, Nondistended and Normal Bowel Sounds
Musculoskeletal: No Edema
Skin: Warm and Dry; Negative Rash, Ulcers or Lesions
Neuro: Awake and AO x 3
Hematologic / Lymphatic: No Lymphadenopathy
Psych: Calm
Data Reviewed
-
Diagnostic Radiology: Report Reviewed by me
Labs: Labs Reviewed by me
--- NOTE | 2025-03-11 10:59 | W.DS.TRANS ---
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
-
Discharge Instructions:
Discharge Diagnosis/Procedures urinary tract infection, acute kidney injuyr,
Vitamin B12 deficiency
Diet Regular
Activity As tolerated
Driving Restrictions As prior to admission
Bathing Restrictions None
Blood Work BMP on Saturday 03/17
Other Services VN,PT,OT
Instructions:
Stand-Alone Forms:
Changes to Home Medications: Yes
Discharge Medications:
DC Medications w/original date entered in [email or web address]
apixaban 5 mg tablet (Eliquis) 5 mg PO BID Blood Clot Prevention/Tx 03/07/25
rosuvastatin 40 mg tablet 40 mg PO DAILY High Cholesterol 03/07/25
amiodarone 200 mg tablet 200 mg PO BID Heart Disease/Condition 03/09/25
cephalexin 500 mg capsule 500 mg PO BID #8 caps 03/11/25
cyanocobalamin (vitamin B-12) 1,000 mcg capsule 1,000 mcg PO DAILY #30 caps 03/11/25
metformin 500 mg tablet 500 mg PO BID #28 tabs 03/11/25
nystatin 100,000 unit/gram topical ointment 1 applic topical BID #15 grams 03/11/25
oxycodone 5 mg tablet 5 mg PO BID PRN severe pain #0 tabs 03/11/25
Home Medication Changes
You are prescribed 4 more days of antibiotics (Keflex 500mg twice a day).
Start taking Vitamin B12 repletion daily.
STOP LISINOPRIL
STOP HCTZ
Measure your blood pressure in the mornings and evenings at home. Record results and bring to your PCP who will direct you if one of these medications should be resumed.
You can resume 1/2 dose Metformin (500mg) twice a day starting tomorrow (you are given a lower dosing secondary to your kidney function). Your labs will be repeated next week. Follow up with Dr. Ortiz when 1G dosing can be resumed.
*You did not require any Oxycodone in the hospital. I recommend you only take this medication if needed, and take a lower dose (5mg not 10mg).
Pending Results: No
[2025-03-11 11:00] VITALS: BP 135/61
[2025-03-11 11:32] LABS: Glucose - Point of Care 206 mg/dl (70-99)
--- NOTE | 2025-03-11 11:40 | CM ---
CM reviewed chart, patient seen in chair, for d/c today.
Patient agreeable to referral to VN, TT to liaison, Veronica, with referral.
Patient confirms transport home from daughter.
IMM verbally reviewed, provided with copy, placed in chart.
Plan; home with referral to [facility]
--- NOTE | 2025-03-11 12:01 | VNURNOTE ---
Home Health Liaison met with patient at bedside to discuss [facility] nurse/therapy, visits, schedule and homebound status. Patient is agreeable and understands that visits at home will be 2-3 x per week to assess and teach medical management. Patient
is aware that [facility] will contact them for start of care within a week after discharge from . Provided contact number for [facility].
PM [facility] referral completed in [facility].
[2025-03-11] MEDS: NOVOLOG FLEXPEN-LOW RESISTANCE 2 UNITS SC (12:32)
--- NOTE | 2025-03-11 13:09 | W.DCSUMMARY ---
Discharge Summary
Discharge Data
Date of Admission: 03/09/25
Date of Discharge: 03/11/25
-
Pending Results: Yes
Additional Pending Results:
Intrinsic Factor Blocking Ab pending at [place].
Hospital Course
Discharging Physician : Dr. Devi Duff
Disposition : Home with Home Health
Primary care physician : Dr. Carlos A Ortiz
Principal Discharge diagnosis : Urinary Tract Infection, Acute Kidney Injury, Vitamin B12 deficiency
Hospital Course :
Ms. Bette Rose is a 84 yo woman with hx s/p TAVR, paroxysmal afib s/p recent cardioversion and started on amiodarone, NIDDM, HLD, HTN CAD s/p PCI presents to the ER post fall when she tripped using her walker. She felt nauseated and vomited
x 1 in the ER.
Triage vitals significant for SBP 100 then dropped to 80's, responsive to IVF administration. She was afebrile, SpO2 94% RA. ECG with paced rhythm. Labs with WBC 7.2, Hg 10.5, Glucose 158. Cr 2.3, baseline 0.9. UA with inflammation. CT head
unremarkable. Non con CT without acute abnormality.
Patient was admitted to medicine for treatment of UTI and AIDA.
For UTI, she was treated with IV Cefepime. Final culture results returned positive for garza-sensitive E. Coli. Antibiotics transitioned to Keflex and she will complete a 7 day course.
Blood pressure remained stable with fluid administration and holding her [employer] S[employer] Lisinopril and HCTZ. Her creatinine downtrended to 1.3. While off of Lisinopril and HCTZ, patient's BP remained within normal limits. Therefore, I am holding these
medications at discharge. She is asked to monitor her blood pressures and bring results to her PCP. A BMP will be repeated in 6 days to monitor renal function.
Given reduced GFR, I have decreased patient's metformin to 500mg twice a day. She will follow up with PCP to determine if prior dosing of 1G BID should be resumed.
She was found to have low vitamin B12 level, 172. She is started on repletion (received 2 IM doses in-house). Intrinsic Factor Blocking Ab pending at [place].
Of note, patient did not require any Oxycodone while admitted. She is told to only take this medication as needed and at half dosing.
Patient worked with physical therapy and SNF recommended but she and daughter preferred that she go home. ordered.
Time spent on discharge was 35 minutes.
Important imaging findings :
CT A/P 03/09/25
IMPRESSION:
1. No significant acute abnormality identified in the abdomen or pelvis, within the limits of unenhanced CT, as described above.
2. Small right and trace left pleural effusions.
HEAD CT 03/09/25
IMPRESSION:
1. No significant acute abnormality identified in the abdomen or pelvis, within the limits of unenhanced CT, as described above.
2. Small right and trace left pleural effusions.
Hip X-Ray 03/09/25
IMPRESSION:
Intact total left hip arthroplasty. No acute fractures or dislocation. Mild to moderate degenerative changes of the pubis symphysis, left hip, bilateral sacroiliac joints and partially visualized lower lumbar spine. Soft tissues are grossly
unremarkable.
Procedure findings :
Discharge Plan
-
Patient Disposition: Home with Home Care
Discharge Diagnosis/Procedures: urinary tract infection, acute kidney injury, Vitamin B12 deficiency
Condition: Good
Diet: Regular
Activity: As tolerated
Driving Restrictions: As prior to admission
Bathing Restrictions: None
Blood Work: BMP on Saturday 03/17
Other Services: VN, PT and OT
Referrals:
Carlos A Ortiz MD [Family Provider, Family Practice] - in less than 1 week
Additional Discharge Medication Instructions: You are prescribed 4 more days of antibiotics (Keflex 500mg twice a day).
Start taking Vitamin B12 repletion daily.
STOP LISINOPRIL
STOP HCTZ
Measure your blood pressure in the mornings and evenings at home. Record results and bring to your PCP who will direct you if one of these medications should be resumed.
You can resume 1/2 dose Metformin (500mg) twice a day starting tomorrow (you are given a lower dosing secondary to your kidney function). Your labs will be repeated next week. Follow up with Dr. Ortiz when 1G dosing can be resumed.
*You did not require any Oxycodone in the hospital. I recommend you only take this medication if needed, and take a lower dose (5mg not 10mg).
Prescriptions:
New
nystatin 100,000 unit/gram Ointment
1 applic topical BID Qty: 15 0RF
cephalexin 500 mg Capsule
500 mg PO BID Qty: 8 0RF
cyanocobalamin (vitamin B-12) 1,000 mcg capsule
1,000 mcg PO DAILY Qty: 30 0RF
metformin 500 mg tablet
500 mg PO BID Qty: 28 0RF
Continued
rosuvastatin 40 mg Tablet
40 mg PO DAILY
Eliquis 5 mg Tablet
5 mg PO BID
amiodarone 200 mg tablet
200 mg PO BID
Patient Comments:
as of 03/09/25 has not started
Changed
oxycodone 5 mg Tablet
5 mg PO BID PRN (Reason: severe pain) Qty: 0 0RF
Discontinued
hydrochlorothiazide 25 mg Tablet
25 mg PO DAILY
lisinopril 20 MG tablet
20 mg PO BID
metformin 500 mg Tablet Extended Release 24 Hr
1,000 mg PO BID
Discharge Orders:
Discharge Patient (As Directed); Ordered 03/11/25
Ordered By: Devi Duff
Discharge Date and Time
Print Language: ALBANIAN
[2025-03-12 22:48] LABS: Intrinsic Factor Blocking Ab Negative (Negative)
--- NOTE | 2025-03-14 10:16 | PN.CDI ---
CDI
- -
CDI:
Physician Documentation Request
Admit Date: 03/09/25 02:49
Dear ,
[facility] is using an adapted version of the 2016 Third International Consensus Definitions for Sepsis and Septic Shock (Sepsis-3) where sepsis is defined as life threatening organ dysfunction caused by a deregulated host response to infection.
Please reference the official [facility] Sepsis Recognition Tool for further information, which can be found on the Intranet under Infection Prevention.
Clinical Indicators:
Progress notes state 'sepsis 2/2 UTI' as well as AIDA
Based on your medical judgment, can you please clarify whether or not the above organ dysfunction is related to or due to sepsis?
-- Sepsis due to UTI with organ dysfunction of AIDA
-- Other (please specify)
-- Clinically unable to determine��
Use of terms such as suspected, likely, concern for, or probable (associated with a specific diagnosis that is being evaluated, monitored, or treated as if it exists) are acceptable and can be coded in the inpatient setting when documented at the
time of discharge.
Please use your independent medical judgement in providing your response.
Thank you,
Bell Fletcher RN, BSN
CDI Specialist
tiger text
== END 2025-03-11 14:25 | disposition home health service (06) | DRG 872 ==
LOC: 4 WEST ACU 02:49
PROVIDERS: Emergency Medicine; Internal Medicine; ADMITTING PHYSICIAN Internal Medicine; ATTENDING PHYSICIAN Student in an Organized Health Care Education/Training Program; EMERGENCY PHYSICIAN Emergency Medicine; FAMILY PHYSICIAN Family Medicine
DX: A41.51 Sepsis due to Escherichia coli [E. coli] (principal); N17.9 Acute kidney failure, unspecified; N39.0 Urinary tract infection, site not specified; E53.8 Deficiency of other specified B group vitamins; E11.9 Type 2 diabetes mellitus without complications; I10 Essential (primary) hypertension; I25.10 Atherosclerotic heart disease of native coronary artery without angina pectoris; Z95.2 Presence of prosthetic heart valve; E78.00 Pure hypercholesterolemia, unspecified; I48.0 Paroxysmal atrial fibrillation; Z95.5 Presence of coronary angioplasty implant and graft; W01.0XXA Fall on same level from slipping, tripping and stumbling without subsequent striking against object, initial encounter; B96.20 Unspecified Escherichia coli [E. coli] as the cause of diseases classified elsewhere; Z90.49 Acquired absence of other specified parts of digestive tract; Z96.642 Presence of left artificial hip joint; Z79.84 Long term (current) use of oral hypoglycemic drugs; Z79.01 Long term (current) use of anticoagulants; Z79.891 Long term (current) use of opiate analgesic; B37.2 Candidiasis of skin and nail; E86.0 Dehydration; G89.29 Other chronic pain; M48.00 Spinal stenosis, site unspecified; N13.9 Obstructive and reflux uropathy, unspecified; Z66 Do not resuscitate; Z95.0 Presence of cardiac pacemaker; I49.5 Sick sinus syndrome; Z79.899 Other long term (current) drug therapy
CPT/HCPCS: 51701; 70450; 73502; 74176; 80048; 80053; 81003; 81015; 82550; 82570; 82607; 82746; 82962; 83010; 83036; 83540; 83550; 83615; 83690; 84156; 85025; 85027; 85045; 86340; 87040; 87086; 87088; 87186; 93005; 96361; 96365; 96375; 97162; 99285